=== PATIENT | male | born 1990 | race Caucasian/White ===

== ENCOUNTER 2020-11-16 20:32 | Emergency (ER) | payer OTHER ==
[~2020-11-16 20:32] MED LIST: ACUVAIL 0.45%1 EACH OD; FLEXERIL10 MG PO; ILOTYCIN1 GM OS; MOTRIN600 MG PO; NORCO 5-325 TA1 EACH PO
== END 2020-11-17 00:05 | disposition home or self-care (01) ==
LOC: FER 20:32
DX: S62.316A Displaced fracture of base of fifth metacarpal bone, right hand, initial encounter for closed fracture (principal); S63.501A Unspecified sprain of right wrist, initial encounter; F17.200 Nicotine dependence, unspecified, uncomplicated; W20.8XXA Other cause of strike by thrown, projected or falling object, initial encounter; Y92.009 Unspecified place in unspecified non-institutional (private) residence as the place of occurrence of the external cause
CPT/HCPCS: 73110; 73130

== ENCOUNTER 2021-12-02 17:20 | Emergency (ER) | payer OTHER ==
[2021-12-02] MEDS ORDERED: CILOXAN5 ML EYELF (20:07)
[2021-12-02] MEDS ORDERED: ACULAR5 ML EYELF (20:07)
== END 2021-12-02 20:35 | disposition home or self-care (01) ==
LOC: FER 17:20
DX: T15.02XA Foreign body in cornea, left eye, initial encounter (principal); F17.210 Nicotine dependence, cigarettes, uncomplicated; X58.XXXA Exposure to other specified factors, initial encounter; Y93.89 Activity, other specified; Y92.89 Other specified places as the place of occurrence of the external cause; Y99.0 Civilian activity done for income or pay
CPT/HCPCS: 99283